=== PATIENT | male | born 1960 | race Caucasian/White ===

== ENCOUNTER 2017-11-24 08:57 | Observation (INO) | payer OTHER ==
[2017-11-24] MEDS ORDERED: ASPIRIN 81 MG PO STA (09:13)
[2017-11-24] MEDS ORDERED: NITROGLYCERIN OINT 1 INCH/GM PACKET TOPICAL STA (09:13)
--- NOTE | 2017-11-24 09:20 | ED ---
General Adult HPI - General Chief complaint: Chest Pain Stated complaint: Chest discomfort Time Seen by Provider: 11/24/17 09:07 Source: patient, RN notes reviewed Mode of arrival: wheelchair Limitations: no limitations - History of Present Illness Initial comments: Patient is a pleasant 37-year-old male presenting to the emergency department complaining of chest discomfort. Patient woke this morning with nausea and vomiting. Patient has had chest discomfort since he woke. Patient has difficulty describing chest discomfort. No radiation. Patient does have some associated dyspnea and sweating as well. Discomfort is mild at this time. No history of similar symptoms previously. - Related Data Home Medications Medication Instructions Recorded Confirmed Diltiazem HCl [Cardizem] 120 mg PO BID 11/24/17 11/24/17 Allergies Allergy/AdvReac Type Severity Reaction Status Date / Time No Known Allergies Allergy Verified 11/24/17 09:45 Review of Systems ROS Statement: Those systems with pertinent positive or pertinent negative responses have been documented in the HPI. ROS Other: All systems not noted in ROS Statement are negative. Constitutional: Denies: fever Eyes: Denies: eye pain ENT: Denies: ear pain Respiratory: Reports: dyspnea. Denies: cough Cardiovascular: Reports: chest pain Endocrine: Denies: fatigue Gastrointestinal: Denies: abdominal pain Genitourinary: Denies: dysuria Musculoskeletal: Denies: back pain Skin: Denies: rash Neurological: Denies: weakness Past Medical History Past Medical History: Hypertension History of Any Multi-Drug Resistant Organisms: None Reported Additional Past Surgical History / Comment(s): BL rotator cuff Past Psychological History: No Psychological Hx Reported Smoking Status: Never smoker Past Alcohol Use History: Daily Past Drug Use History: Marijuana General Exam Limitations: no limitations General appearance: alert, in no apparent distress Head exam: Present: atraumatic Eye exam: Present: normal appearance, PERRL ENT exam: Present: normal oropharynx Neck exam: Present: normal inspection Respiratory exam: Present: normal lung sounds bilaterally. Absent: chest wall tenderness Cardiovascular Exam: Present: regular rate, normal rhythm Expanded Peripheral pulses: 2+: Radial (R), Radial (L), Dorsalis Pedis (R), Dorsalis Pedis (L) GI/Abdominal exam: Present: soft. Absent: distended, tenderness Extremities exam: Present: normal inspection. Absent: pedal edema, calf tenderness Neurological exam: Present: alert Psychiatric exam: Present: normal affect, normal mood Skin exam: Present: normal color Course Vital Signs 11/24/17 11/24/17 08:59 10:04 Temperature 98.4 F Pulse Rate 121 H 79 Respiratory 20 18 Rate Blood Pressure 165/95 163/98 O2 Sat by Pulse 97 94 L Oximetry EKG Findings - EKG Comments: EKG Findings:: Normal sinus rhythm 92. W[place] 194. QRS 94. QT 354. QTC 437. Right axis. Low QRS voltage. No acute ST change. Medical Decision Making - Medical Decision Making Patient reevaluated and updated. Case discussed with Dr. Morales, with [facility], who will admit for hospital call. - Lab Data Result diagrams: 11/24/17 09:17 11/24/17 09:17 Lab Results 11/24/17 11/24/17 11/24/17 Range/Units 09:17 09:17 09:17 WBC 7.5 (3.8-10.6) k/uL RBC 5.35 (4.30-5.90) m/uL Hgb 17.3 (13.0-17.5) gm/dL Hct 50.4 (39.0-53.0) % MCV 94.2 (80.0-100.0) fL MCH 32.2 (25.0-35.0) pg MCHC 34.2 (31.0-37.0) g/dL RDW 11.8 (11.5-15.5) % Plt Count 273 (150-450) k/uL Neutrophils % 67 % Lymphocytes % 23 % Monocytes % 6 % Eosinophils % 2 % Basophils % 1 % Neutrophils # 5.0 (1.3-7.7) k/uL Lymphocytes # 1.7 (1.0-4.8) k/uL Monocytes # 0.5 (0-1.0) k/uL Eosinophils # 0.2 (0-0.7) k/uL Basophils # 0.1 (0-0.2) k/uL PT (9.0-12.0) sec INR (<1.2) APTT (22.0-30.0) sec D-Dimer (<0.60) mg/L FEU Sodium 141 (137-145) mmol/L Potassium 4.2 (3.5-5.1) mmol/L Chloride 100 (98-107) mmol/L Carbon Dioxide 27 (22-30) mmol/L Anion Gap 14 mmol/L BUN 12 (9-20) mg/dL Creatinine 1.29 H (0.66-1.25) mg/dL Est GFR (MDRD) Af Amer >60 (>60 ml/min/1.73 sqM) Est GFR (MDRD) Non-Af 58 (>60 ml/min/1.73 sqM) Glucose 132 H (74-99) mg/dL Calcium 10.0 (8.4-10.2) mg/dL Magnesium 2.1 (1.6-2.3) mg/dL Total Bilirubin 0.8 (0.2-1.3) mg/dL AST 26 (17-59) U/L ALT 38 (21-72) U/L Alkaline Phosphatase 100 (38-126) U/L Total Creatine Kinase 126 (55-170) U/L CK-MB (CK-2) 2.5 H* (0.0-2.4) ng/mL CK-MB (CK-2) Rel Index 2.0 Troponin I <0.012 (0.000-0.034) ng/mL NT-Pro-B Natriuret Pep pg/mL Total Protein 7.3 (6.3-8.2) g/dL Albumin 4.6 (3.5-5.0) g/dL Serum Alcohol <10 mg/dL 11/24/17 11/24/17 Range/Units 09:17 09:17 WBC (3.8-10.6) k/uL RBC (4.30-5.90) m/uL Hgb (13.0-17.5) gm/dL Hct (39.0-53.0) % MCV (80.0-100.0) fL MCH (25.0-35.0) pg MCHC (31.0-37.0) g/dL RDW (11.5-15.5) % Plt Count (150-450) k/uL Neutrophils % % Lymphocytes % % Monocytes % % Eosinophils % % Basophils % % Neutrophils # (1.3-7.7) k/uL Lymphocytes # (1.0-4.8) k/uL Monocytes # (0-1.0) k/uL Eosinophils # (0-0.7) k/uL Basophils # (0-0.2) k/uL PT 9.7 (9.0-12.0) sec INR 1.0 (<1.2) APTT 24.2 (22.0-30.0) sec D-Dimer <0.17 (<0.60) mg/L FEU Sodium (137-145) mmol/L Potassium (3.5-5.1) mmol/L Chloride (98-107) mmol/L Carbon Dioxide (22-30) mmol/L Anion Gap mmol/L BUN (9-20) mg/dL Creatinine (0.66-1.25) mg/dL Est GFR (MDRD) Af Amer (>60 ml/min/1.73 sqM) Est GFR (MDRD) Non-Af (>60 ml/min/1.73 sqM) Glucose (74-99) mg/dL Calcium (8.4-10.2) mg/dL Magnesium (1.6-2.3) mg/dL Total Bilirubin (0.2-1.3) mg/dL AST (17-59) U/L ALT (21-72) U/L Alkaline Phosphatase (38-126) U/L Total Creatine Kinase (55-170) U/L CK-MB (CK-2) (0.0-2.4) ng/mL CK-MB (CK-2) Rel Index Troponin I (0.000-0.034) ng/mL NT-Pro-B Natriuret Pep 25 pg/mL Total Protein (6.3-8.2) g/dL Albumin (3.5-5.0) g/dL Serum Alcohol mg/dL - Radiology Data Radiology results: image reviewed (Chest x-ray shows no acute process) Disposition Clinical Impression: Chest pain Disposition: ADMITTED IP TO THIS [facility] Referrals: None,Stated [Primary Care Provider] - 1-2 days Decision Time: 10:37
[2017-11-24 09:28] LABS: Basophils # (A) 0.1 k/uL (0-0.2); Basophils % (A) 1 %; Eosinophils # (A) 0.2 k/uL (0-0.7); Eosinophils % (A) 2 %; HCT 50.4 % (39.0-53.0); HGB 17.3 gm/dL (13.0-17.5); Lymphocytes # (A) 1.7 k/uL (1.0-4.8); Lymphocytes % (A) 23 %; MCH 32.2 pg (25.0-35.0); MCHC 34.2 g/dL (31.0-37.0); MCV 94.2 fL (80.0-100.0); Mean Platelet Volume 6.3; Monocytes # (A) 0.5 k/uL (0-1.0); Monocytes % (A) 6 %; Neutrophils % (A) 67 %; Platelet Count 273 k/uL (150-450); RBC 5.35 m/uL (4.30-5.90); RDW 11.8 % (11.5-15.5); WBC 7.5 k/uL (3.8-10.6)
[2017-11-24 09:37] LABS: ALT 38 U/L (21-72); AST 26 U/L (17-59); Albumin 4.6 g/dL (3.5-5.0); Alcohol <10 mg/dL; Alkaline Phosphatase 100 U/L (38-126); Anion Gap 14 mmol/L; Blood Urea Nitrogen 12 mg/dL (9-20); Carbon Dioxide 27 mmol/L (22-30); Chloride 100 mmol/L (98-107); Glucose 132 mg/dL (74-99); Potassium 4.2 mmol/L (3.5-5.1); Sodium 141 mmol/L (137-145); Total Bilirubin 0.8 mg/dL (0.2-1.3); Total Protein 7.3 g/dL (6.3-8.2)
[2017-11-24 09:45] LABS: D-Dimer <0.17 mg/L FEU (<0.60); Partial Thromboplastin Time 24.2 sec (22.0-30.0); Prothrombin Time 9.7 sec (9.0-12.0)
--- NOTE | 2017-11-24 09:46 | XR ---
EXAMINATION TYPE: XR chest 2V DATE OF EXAM: 11/24/2017 COMPARISON: NONE HISTORY: Chest pain TECHNIQUE: Frontal and lateral views of the chest are obtained. FINDINGS: There is no focal air space opacity, pleural effusion, or pneumothorax seen. The cardiac silhouette size is within normal limits. There are overlying cardiac leads. Patient is rotated. The osseous structures are intact. IMPRESSION: No acute cardiopulmonary process.
[2017-11-24 09:55] LABS: Creatine Kinase 126 U/L (55-170)
[2017-11-24 10:07] LABS: Troponin I <0.012 ng/mL (0.000-0.034)
[2017-11-24 10:10] LABS: Creatine Kinase MB 2.5 ng/mL (0.0-2.4)
[2017-11-24] MEDS ORDERED: NITROGLYCERIN SL TABS 0.4 MG TAB SUBLINGUAL PRN (10:37)
[2017-11-24] MEDS: NITROGLYCERIN OINT 1 INCH/GM PACKET TOPICAL SCH ×3 (13:36→23:25)
[2017-11-24 15:29] LABS: Creatine Kinase 108 U/L (55-170)
[2017-11-24 15:43] LABS: Creatine Kinase MB 2.2 ng/mL (0.0-2.4); Troponin I <0.012 ng/mL (0.000-0.034)
[2017-11-24] MEDS ORDERED: MORPHINE SULFATE 4 MG/ML SYRINGE IVP PRN (15:52)
[2017-11-24] MEDS ORDERED: ALPRAZolam 0.25 MG TAB PO PRN (16:10)
--- NOTE | 2017-11-24 17:07 | P.PN ---
Progress Note - Text Progress Note Date: 11/24/17 Came to evaluate patient. Ptient is very anxious tearful. Denies any chest pain at this time. No shortness of breath, no nausea, no palpitations. Blood pressre elevated. Will order xanax at this time for anxiety. Blood pressure is high secondary to anxiety.
--- NOTE | 2017-11-24 17:08 | P.HPIM ---
History of Present Illness H&P Date: 11/24/17 Chief Complaint: chest pain This is a 57 y/o male that comes with symptoms of chest pain. This woke him up from sleep. This is described as pressure. He did have sob and nausea. Sxs relieved upon arrival to the er. No EKG changes. Patient says he had sxs 1 year ago but at the time he had weakness in his left arm. Did not seel medical attention then. Review of Systems no fever, no cough, no dysuria,no palpitations,no abdominal pain, all 10 systems reviewed and were negative except what was mentioned in hpi. Past Medical History Past Medical History: Hypertension History of Any Multi-Drug Resistant Organisms: None Reported Additional Past Surgical History / Comment(s): BL rotator cuff Past Psychological History: No Psychological Hx Reported Smoking Status: Never smoker Past Alcohol Use History: Daily Past Drug Use History: Marijuana Medications and Allergies Home Medications Medication Instructions Recorded Confirmed Type Diltiazem HCl [Cardizem] 120 mg PO BID 11/24/17 11/24/17 History Allergies Allergy/AdvReac Type Severity Reaction Status Date / Time No Known Allergies Allergy Verified 11/24/17 09:45 Physical Exam Vitals: Vital Signs Temp Pulse Resp BP Pulse Ox 11/24/17 11:18 84 18 163/96 97 11/24/17 10:04 79 18 163/98 94 L 11/24/17 08:59 98.4 F 121 H 20 165/95 97 Intake and Output 11/23/17 11/24/17 11/24/17 22:59 06:59 14:59 Other: Weight 102.058 kg Patient Weight 11/25/17 06:59 Weight 102.058 kg - Constitutional General appearance: no acute distress - EENT Eyes: PERRLA ENT: normal oropharynx - Neck Neck: no lymphadenopathy - Respiratory Respiratory: bilateral: CTA, negative: rales, rhonchi, wheezing - Cardiovascular Rhythm: regular Heart sounds: normal: S1, S2 - Gastrointestinal General gastrointestinal: normal bowel sounds - Integumentary Integumentary: no rash - Neurologic Neurologic: CNII-XII intact - Musculoskeletal Musculoskeletal: gait normal - Psychiatric Psychiatric: A&O x's 3, appropriate affect Results CBC & Chem 7: 11/24/17 09:17 11/24/17 09:17 Labs: Abnormal Lab Results - Last 24 Hours (Table) 11/24/17 11/24/17 Range/Units 09:17 09:17 Creatinine 1.29 H (0.66-1.25) mg/dL Glucose 132 H (74-99) mg/dL CK-MB (CK-2) 2.5 H* (0.0-2.4) ng/mL Assessment and Plan (1) Chest pain Narrative/Plan: serial cardiac enzymes stress test in am Current Visit: Yes Status: Acute Code(s): R07.9 - CHEST PAIN, UNSPECIFIED SNOMED Code(s): 13032133 (2) Hypertension Current Visit: Yes Status: Acute Code(s): I10 - ESSENTIAL (PRIMARY) HYPERTENSION SNOMED Code(s): 32535361 (3) Renal insufficiency Narrative/Plan: seems to chronic in nature Current Visit: Yes Status: Acute Code(s): N28.9 - DISORDER OF KIDNEY AND URETER, UNSPECIFIED SNOMED Code(s): 942530646
[2017-11-24] MEDS: DILTIAZEM CD 120 MG CAP.ER.24H PO SCH (17:28)
[2017-11-24] MEDS ORDERED: MAG HYDROX/AL HYDROX/SIMETH 30 ML CUP PO PRN (18:24)
[2017-11-24] MEDS ORDERED: FAMOTIDINE 20 MG TAB PO PRN (18:25)
[2017-11-24] MEDS ORDERED: ALPRAZolam 0.5 MG TAB PO PRN (19:41)
[2017-11-24] MEDS: ONDANSETRON 4 MG/2 ML VIAL IVP PRN (20:17)
[2017-11-24 22:30] LABS: Creatine Kinase 129 U/L (55-170)
[2017-11-24 22:34] LABS: Troponin I <0.012 ng/mL (0.000-0.034)
[2017-11-24 22:36] LABS: Creatine Kinase MB 4.3 ng/mL (0.0-2.4)
[2017-11-25] MEDS: ONDANSETRON 4 MG/2 ML VIAL IVP PRN ×2 (02:04→11:32)
[2017-11-25 04:12] LABS: Cholesterol 212 mg/dL (<200); HDL Cholesterol 92 mg/dL (40-60); LDL Cholesterol,Calculated 109 mg/dL (0-99); Triglycerides 57 mg/dL (<150)
[2017-11-25] MEDS: NITROGLYCERIN OINT 1 INCH/GM PACKET TOPICAL SCH ×2 (04:39→13:16)
[2017-11-25] MEDS: DILTIAZEM CD 120 MG CAP.ER.24H PO SCH (06:01)
[2017-11-25 07:43] VITALS: RESP 16
--- NOTE | 2017-11-25 08:39 | P.PN ---
Subjective Progress Note Date: 11/25/17 Principal diagnosis: chest pain patient has several episodes of vomiting yesterday. Nausea comes on with any oral intake, no abdominal pain.Patient not tearful this am. Better spirits Objective - Vital Signs Vital signs: Vital Signs Temp 99.2 F 11/25/17 07:42 Pulse 96 11/25/17 07:42 Resp 16 11/25/17 07:42 BP 138/96 11/25/17 07:42 Pulse Ox 95 11/25/17 07:42 Intake & Output 11/24/17 11/25/17 11/25/17 18:59 06:59 18:59 Intake Total 240 Balance 240 Weight 104.3 kg Intake: Oral 240 Other: Voiding Method Toilet # Voids 3 - Exam gen:alert and oriented lungs:clear to auscultation heart:s1s2 abdomen:soft and depressible,non tender ext:no edema - Labs CBC & Chem 7: 11/24/17 09:17 11/24/17 09:17 Labs: Abnormal Lab Results - Last 24 Hours (Table) 11/24/17 11/24/17 11/24/17 Range/Units 09:16 09:17 09:17 Creatinine 1.29 H (0.66-1.25) mg/dL Glucose 132 H (74-99) mg/dL CK-MB (CK-2) 2.5 H* (0.0-2.4) ng/mL Cholesterol 212 H (<200) mg/dL LDL Cholesterol, Calc 109 H (0-99) mg/dL HDL Cholesterol 92 H (40-60) mg/dL 11/24/17 Range/Units 21:47 Creatinine (0.66-1.25) mg/dL Glucose (74-99) mg/dL CK-MB (CK-2) 4.3 H* (0.0-2.4) ng/mL Cholesterol (<200) mg/dL LDL Cholesterol, Calc (0-99) mg/dL HDL Cholesterol (40-60) mg/dL Assessment and Plan (1) Chest pain Narrative/Plan: cardiology to evaluate troponins negative Current Visit: Yes Status: Acute Code(s): R07.9 - CHEST PAIN, UNSPECIFIED SNOMED Code(s): 95165619 (2) Hypertension Narrative/Plan: better controlled cont current treatment Current Visit: Yes Status: Acute Code(s): I10 - ESSENTIAL (PRIMARY) HYPERTENSION SNOMED Code(s): 18856869 (3) Renal insufficiency Current Visit: Yes Status: Acute Code(s): N28.9 - DISORDER OF KIDNEY AND URETER, UNSPECIFIED SNOMED Code(s): 091716244 (4) Nausea & vomiting Narrative/Plan: Patient says he has had sxs for over 1 year. Will start patient on ppi upon discharge but will need follow up with PCP. Current Visit: Yes Status: Acute Code(s): R11.2 - NAUSEA WITH VOMITING, UNSPECIFIED SNOMED Code(s): 34112624 Plan: Await cardiology input
[2017-11-25] MEDS ORDERED: ASPIRIN 325 MG TAB PO SCH (09:00)
--- NOTE | 2017-11-25 11:56 | CONS ---
CONSULTATION Mr. Martino is a 57-year-old gentleman who is seen for the symptoms of evaluation of chest pain, nausea and vomiting. This patient gives a history that for the last couple of days he has been having intermittent symptoms of nausea, shortness of breath and chest pain. Patient has been having vomiting, he has been having some difficulty in swallowing and discomfort in the chest which he describes as a pressure-like sensation in the chest. He also had 1 episode of vomiting in the morning. Patient denies any past history of exertional chest discomfort. Patient has a history of hypertension. There is no history of diabetes, hyperlipidemia, or prior myocardial infarction. There is no family history of coronary artery disease. PAST MEDICAL HISTORY: Includes a history of bilateral rotator cuff surgery. REVIEW OF THE SYSTEM: Otherwise unremarkable. SMOKING STATUS: Patient does not smoke. HOME MEDICATIONS: Include Cardizem 120 mg b.i.d.. PHYSICAL EXAMINATION: Reveals the patient's blood pressure to be 138/96 mmHg. HEENT examination is negative. Neck is supple. There is no increase in jugular venous pressure. Both the carotid pulses are felt. There is no bruit. Chest is symmetrical. Heart, the PMI is not felt. First and second heart sounds are normal. There is no evidence of any murmur. Lungs are clinically clear to auscultation and percussion. Abdomen is negative. Extremities, peripheral pulses are 2+. EKG shows normal sinus rhythm without any acute ischemic changes. Cardiac troponins are negative. FINAL IMPRESSION: This patient is admitted with atypical chest discomfort, nausea and vomiting; exact etiology undetermined. There is no evidence of acute coronary syndrome. Patient's EKGs and cardiac enzymes are normal. Patient will be evaluated with echo and stress echocardiographic study. If it is a normal, further GI evaluation, ultrasound of the gallbladder are suggested. This patient does have a borderline elevated blood pressure. Patient is advised to keep the recording of blood pressure at home and if necessary, further adjustment in the medications can be made as an outpatient. Patient does have LDL level of 109 and HDL level of 92, in view of hypertension, I will add a small dose of Lipitor. MMODL / IJN: [id number] /
--- NOTE | 2017-11-25 12:20 | ECHOS ---
STRESS ECHOCARDIOGRAM INDICATIONS: Chest pain. MEDICATIONS: Blood pressure pill. BASELINE HEART RATE: 100 BASELINE BLOOD PRESSURE: 146/100 MAXIMUM HEART RATE: 142 MAXIMUM BLOOD PRESSURE: 211/100 85% MPHR: 140 100% MPHR: 165 METS: 9.1 MAXIMUM STAGE REACHED: II TOTAL EXERCISE TIME: 7:30 CLINICAL INFORMATION: Patient was exercised for a total of 7 minutes and 30 seconds. Peak heart rate of 142 was achieved. Maximum blood pressure of 211/100 mmHg was noted. Resting EKG shows normal sinus rhythm with normal LA interval and QRS duration and normal ST-T waves. No ST-segment depression suggestive of ischemia was noted. The baseline echocardiographic images reveal normal left ventricular chamber size with normal left ventricular systolic function. In the immediate post exercise period normal increase in the wall thickness and contractility is noted. FINAL IMPRESSION: 1. This stress echocardiographic study is negative for stress-induced ischemia. 2. EKG portion of the stress test is not suggestive of ischemia. MMODL / IJN: [id number] /
--- NOTE | 2017-11-25 14:05 | P.DS ---
Providers Date of admission: 11/24/17 10:37 Expected date of discharge: 11/25/17 Attending physician: Levi Morales MD Consults: 11/24/17 10:37 Consult Physician Urgent Consulting Provider: Ronen Mirza Consult Reason/Comments: cp Do you want consulting provider notified?: Yes Primary care physician: Stated None - Discharge Diagnosis(es) (1) Chest pain Current Visit: Yes Status: Acute (2) Hypertension Current Visit: Yes Status: Acute (3) Renal insufficiency Current Visit: Yes Status: Acute (4) Nausea & vomiting Current Visit: Yes Status: Acute Hospital Course: 57 y/o mal that comes with symptoms of nausea and chest discomfort. Serial cardiac enzymes were negative. Stress test ordered by cardiology showed low risk for ischemia. Patient describes having nausea with oral intake for several months now. Will start patient on protonix but I stressed the need to see PCP jannie for further monitoring and evaluation. Patient Condition at Discharge: Stable Plan - Discharge Summary Discharge Rx Participant: No New Discharge Prescriptions: New Pantoprazole Sodium [Protonix] 40 mg PO DAILY #30 tablet. Continue Diltiazem HCl [Cardizem] 120 mg PO BID Discharge Medication List Diltiazem HCl [Cardizem] 120 mg PO BID 11/24/17 [History] Pantoprazole Sodium [Protonix] 40 mg PO DAILY #30 tablet. 11/25/17 [Rx] Follow up Appointment(s)/Referral(s): None,Stated [Primary Care Provider] - 1-2 days Discharge Disposition: HOME SELF-CARE
[2017-11-25 15:02] VITALS: BP 155/105; PULSE 95; TEMP 98.8
[2017-11-26] MEDS ORDERED: ATORVASTATIN 20 MG TAB PO SCH (09:00)
== END 2017-11-25 15:22 | disposition home or self-care (01) ==
LOC: EC 08:57 → 3OBS 10:37
PROVIDERS: ADMIT Internal Medicine; ATTEND Internal Medicine
DX: R07.89 Other chest pain (principal); I10 Essential (primary) hypertension; N28.9 Disorder of kidney and ureter, unspecified; R11.2 Nausea with vomiting, unspecified; R06.00 Dyspnea, unspecified; R61 Generalized hyperhidrosis; R06.02 Shortness of breath; R13.10 Dysphagia, unspecified; F41.9 Anxiety disorder, unspecified; Z79.899 Other long term (current) drug therapy
CPT/HCPCS: 99285; 96374; 96376; 36415; 93005; 93017; 93306; 93350; 85379; 83880; 80061; 80053; 82550; 82553; 83735; 84484; 85025; 85610; 85730; 80320; 71046; G0378 ×2; J2405 ×2